=== PATIENT | female | born 2000 | race Caucasian/White ===

== ENCOUNTER → 2022-08-24 10:08 | Outpatient (BNVA) | payer BC, SELFPAY | PROVIDERS: Family Provider Nurse Practitioner; Visit Provider Nurse Practitioner Family | DX: J02.9 Acute pharyngitis, unspecified (principal); J32.9 Chronic sinusitis, unspecified | CPT/HCPCS: 87071; 87880 ==

== ENCOUNTER 2024-08-02 13:38 | Outpatient (CLI) | payer OTHER, SELFPAY ==
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
== END 2024-08-02 13:39 | disposition home or self-care (01) ==
PROVIDERS: Visit Provider Nurse Practitioner Family
DX: S13.4XXA Sprain of ligaments of cervical spine, initial encounter (principal); V89.2XXA Person injured in unspecified motor-vehicle accident, traffic, initial encounter; R42 Dizziness and giddiness; M54.2 Cervicalgia; M51.379 Other intervertebral disc degeneration, lumbosacral region without mention of lumbar back pain or lower extremity pain; R93.7 Abnormal findings on diagnostic imaging of other parts of musculoskeletal system
CPT/HCPCS: 72040; 72100